=== PATIENT | male | born 1965 | race Caucasian/White ===

== ENCOUNTER 2024-08-18 12:24 | Emergency (ER) | payer BC, SELFPAY ==
[2024-08-18 12:37] VITALS: BP 138/74; PULSE 81; RESP 18; TEMP 36.6; O2SAT 98; BMI 29.5
--- NOTE | 2024-08-18 12:47 | ED.ABDPAIN ---
HPI - Abdominal Pain General Time Seen by Provider: 12:47 Date Seen: 08/18/24 Chief Complaint: Abdominal Pain Stated Complaint: Abdominal pain Time Seen by Provider: 08/18/24 12:46 Source: patient and RN notes reviewed Mode of arrival: ambulatory Limitations: no limitations History of Present Illness HPI narrative: This 59yo male is coming into the ED with onset of LLQ abdominal pain starting this am. 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 Started to feel more sharp in character, pain was enough that he cancelled his next appointment and proceeded to come here. No fevers, is feeling some chills now. No nausea or vomiting. Has had prior colonoscopy. Has normal bowels without change including this am. No urinary changes. He does lift weights, has been doing a lot of lifting as he recently moved his son, this includes lifting a heavy T.V. stand last night. Noted no pain with lifting at the time. Has not felt any abdominal buldging. Related Data Previous Rx's ?Medication ?Instructions ?Recorded amoxicillin 875 mg-potassium 1 tab PO BID #20 tabs 08/18/24 clavulanate 125 mg tablet ketorolac 10 mg tablet 10 mg PO Q6H PRN pain #20 tabs 08/18/24 Allergies Allergy/AdvReac Type Severity Reaction Status Date / Time No Known Drug Allergies Allergy Verified 08/18/24 14:17 Review of Systems Status of ROS Reports: 6 or more systems reviewed and unremarkable except as noted in History and below Exam Const: Vital Signs, click to edit/add: Vital Signs - 24 hr 08/18/24 12:37 08/18/24 14:43 Temperature 98 F 97.2 F L Pulse Rate [Pulse Oximeter] 81 78 Respiratory Rate 18 16 Blood Pressure [Ri ght Upper Arm] 138/74 120/91 H Pulse Oximetry 98 98 Oxygen Delivery Me thod Room Air Room Air This 59-year-old male is alert, interactive, no apparent distress. No scleral icterus, symmetrical facial function, speaking easily in complete sentences. Lungs are clear, good air entry, no wheezing crackles. CV regular rate and rhythm, no murmur, normal S1-S2. Abdomen is soft, nondistended, has normal bowel sounds. He has definite left lower quadrant tenderness with some mild guarding, no true rebound. He is not tender elsewhere in abdomen, it is isolated to the left lower quadrant. Note no inguinal mass. Documenting provider has reviewed patient's vital signs: yes Course Course ED Course: Patient and I discussed that I suspect bowel pathology such as diverticulitis, less likely colitis given normal bowel habits. There is possibility that it could be urinary structure issue such as a kidney stone but feel this is less likely given his presentation. We will do CT imaging with IV contrast which will elucidate the intra-abdominal pathology. Will place an IV, get appropriate labs. Will start with Toradol for pain management, he states he is really not feeling nauseated. If Toradol isn't sufficient, we can consider other pain options. Reevaluation(s) Time of Reevaluation #1: 13:58 Reevaluation #1: Patient is resting, we are awaiting his CT scan to be taken. The Toradol has taken the edge off, does not feel he needs anything further for pain at this time. Reviewed that his white blood count is mildly elevated that certainly would go with something like diverticulitis. His C-reactive protein and on basic metabolic panel are normal. Lactate was normal. Time of Reevaluation #2: 14:50 Reevaluation #2: Have reviewed with patient his CT report. He has acute uncomplicated diverticulitis. Will give him a dose of IV antibiotics before discharge. He has no concerning changes that would warrant hospitalization at this time, do feel that he is stable to proceed with trial of outpatient management with oral antibiotics. Did discuss pain management with patient, he declines any narcotics. We will trial him on Tylenol and Toradol. Vital Signs Vital signs: Initial Vital Signs Temperature 98 F 08/18/24 12:37 Temperature Source Temporal Artery Scan 08/18/24 12:37 Pulse Rate 81 08/18/24 12:37 Respiratory Rate 18 08/18/24 12:37 Blood Pressure 138/74 08/18/24 12:37 Blood Pressure Mean 95 08/18/24 12:37 Pulse Oximetry 98 08/18/24 12:37 Oxygen Delivery Method Room Air 08/18/24 12:37 Vital Signs Temperature 98 F 08/18/24 12:37 Pulse Rate 81 08/18/24 12:37 Respiratory Rate 18 08/18/24 12:37 Blood Pressure 138/74 08/18/24 12:37 Pulse Oximetry 98 12/05/24 12:37 Oxygen Delivery Method Room Air 08/18/24 12:37 Temperature 97.2 F L 08/18/24 14:43 Pulse Rate 78 08/18/24 14:43 Respiratory Rate 16 08/18/24 14:43 Blood Pressure 120/91 H 08/18/24 14:43 Pulse Oximetry 98 08/18/24 14:43 Oxygen Delivery Method Room Air 08/18/24 14:43 Medications Administered Medications: Discontinued Medications Generic Name Dose Route Start Last Admin Trade Name Freq PRN Reason Stop Dose Admin Ketorolac Tromethamine 15 mg 08/18/24 12:53 08/18/24 13:08 Ketorolac 15 Mg/Ml Inj IVP 08/18/24 12:54 15 mg ONCE ONE Administration MDM - Abdominal Pain Lab Data Attestation: I reviewed the patient's lab results. Labs: Lab Results 08/18/24 Range/Units 13:05 WBC 11.58 H (4.50-11.00) K/uL RBC 5.54 (4.30-5.90) m/uL Hgb 16.4 (13.5-17.5) gm/dL Hct 48.0 (37.0-53.0) % MCV 87 (80-100) fL MCH 30 (26-34) pg MCHC 34 (32-36) gm/dL RDW Coeff of Jessika 12.8 (11.5-15.5) % Plt Count 217 (140-440) K/uL Neut % (Auto) 75.4 H (42.0-72.0) % Lymph % (Auto) 15.7 L (20-44) % [place] % (Auto) 7.1 (0.0-11.0) % Eos % (Auto) 1.2 (0.0-7.0) % Baso % (Auto) 0.4 (0.0-3.0) % Neut # (Auto) 8.70 H (1.7-7.0) K/uL Lymph # (Auto) 1.80 (0.90-2.90) K/uL [place] # (Auto) 0.80 (0.00-0.90) K/UL Eos # (Auto) 0.10 (0.00-0.50) K/uL Baso # (Auto) 0.00 (0.00-0.30) K/uL Abs Immat Gran (auto) 0.00 (0.00-0.30) K/uL Imm/Tot Granulo (auto) 0.2 % Sodium 135 (135-149) mmol/L Potassium 4.0 (3.6-5.1) mmol/L Chloride 104 (96-114) mmol/L Carbon Dioxide 21 (20-32) mmol/L Anion Gap 10 (7-15) mEq/L BUN 17 (7-30) mg/dL Creatinine 0.9 (0.5-1.5) mg/dL Estimated Creat Clear 90.56 Estimated GFR 100 ml/min Glucose 106 (60-115) mg/dL Lactate 1.2 (0.5-1.9) mmol/L Calcium 9.3 (8.4-10.6) mg/dL C-Reactive Protein 0.7 (0.5-1.0) mg/dL Imaging Data CT scan - abdomen: Attestation: I have reviewed the pertinent imaging results. Radiologist's impression: Patient: MARC BLACKMAN Facility:?[facility] Patient ID:?[id number] Site Patient ID:?[id number]. Site :?[id number] Study:?CT-Abdomen/Pelvis 108CC ISOVUE 370-08/18/2024 2:17:30 PM Ordering Physician:Linette Chambers Final Report: INDICATION: Abdominal pain. TECHNIQUE: Multiplanar CT examination of the abdomen and pelvis was performed after the administration of 100 mL Isovue 370 intravenous contrast. COMPARISON: None. FINDINGS: Lower chest: No focal consolidation. Normal heart size. No pleural effusions or pneumothorax. Subsegmental dependent atelectasis. Small hiatal hernia. Liver: Diffuse hepatic steatosis. Gallbladder: Unremarkable. Biliary: Unremarkable. Pancreas: Within normal limits. Spleen: Unremarkable. Adrenal glands: Unremarkable. Renal/ureters/bladder: Normal in size and symmetrically enhancing. No obstructive uropathy. No hydronephrosis or obstructive urinary calculi. No suspicious renal masses. The ureters appear unremarkable. The bladder is within normal limits. Pelvis: Unremarkable. Gastrointestinal: Moderate colonic wall thickening involving a short segment of the sigmoid colon with associated sigmoid colonic diverticulosis and pericolonic fat stranding. No extraluminal air. No bowel obstruction. Normal appendix. Mild colonic stool burden. Vasculature: No aortic aneurysm. The portal vein remains patent. No significant atherosclerotic calcifications. Lymph nodes: No pathologic lymphadenopathy by size criteria. Peritoneum: No free fluid or pneumoperitoneum. No drainable fluid collections. Abdominal wall/soft tissues: Unremarkable. Bones: No acute osseous abnormalities. Chronic bilateral L5 pars defects with grade 1 anterolisthesis of L5 on S1. IMPRESSION: Findings compatible with acute uncomplicated sigmoid diverticulitis. No drainable abscess identified. Please note that all CT scans at this facility use dose modulation, iterative reconstruction, and/or weight-based dosing when appropriate to reduce radiation dose to as low as reasonably achievable. Dictated by Tomer Andrews MD @ 08/18/2024 2:31:22 PM (Electronic Signature) Discharge Plan Discharge Clinical Impression: Diverticulitis Patient Disposition: Home, Self-Care Condition: Stable Instructions: Diverticulitis (ED), Diverticulitis Diet (ED) Additional Instructions: Start oral antibiotics tonight, complete and take as prescribed. Can use Toradol as prescribed if needed for pain. Do not use ibuprofen with the Toradol as they are both NSAID class. Can use Tylenol 1000 mg 3 times a day baseline for pain. Consider just staying on clear liquids overnight possibly into tomorrow. If feeling better later tomorrow, can follow the dietary handout provided. Once her diverticulitis has resolved and her back to baseline, can resume a high-fiber diet. Do recommend following up with your primary care provider and making sure that your colonoscopy is up-to-date. If it has not been done in the recent time frame, may need to consider repeating colonoscopy in 6-8 weeks after resolution of this episode of diverticulitis. If you are not improving over the next few days, if there is further concerns or you are worsening at any point, need to seek re-evaluation. Activity Level: Activity as Tolerated Prescriptions: New amoxicillin-pot clavulanate 875-125 mg tablet 1 tab PO BID Qty: 20 0RF ketorolac 10 mg tablet 10 mg PO Q6H PRN (Reason: pain) Qty: 20 0RF Rx Instructions: maximum total duration of 5 days from all oral, intranasal, or parenteral formulations Follow Up/Referrals: Jerzy Arias MD [Staff Physician] - Stand Alone Forms: [employer] Info Instructions
--- NOTE | 2024-08-18 12:53 | CRLHL7_ITS ---
For Patients: As a result of the Century Cures Act, medical imaging exams and procedure reports are released immediately into your electronic medical record. You may view this report before your referring provider. If you have questions, please contact your health care provider. INDICATION: Abdominal pain. TECHNIQUE: Multiplanar CT examination of the abdomen and pelvis was performed after the administration of 100 mL Isovue 370 intravenous contrast. COMPARISON: None. FINDINGS: Lower chest: No focal consolidation. Normal heart size. No pleural effusions or pneumothorax. Subsegmental dependent atelectasis. Small hiatal hernia. Liver: Diffuse hepatic steatosis. Gallbladder: Unremarkable. Biliary: Unremarkable. Pancreas: Within normal limits. Spleen: Unremarkable. Adrenal glands: Unremarkable. Renal/ureters/bladder: Normal in size and symmetrically enhancing. No obstructive uropathy. No hydronephrosis or obstructive urinary calculi. No suspicious renal masses. The ureters appear unremarkable. The bladder is within normal limits. Pelvis: Unremarkable. Gastrointestinal: Moderate colonic wall thickening involving a short segment of the sigmoid colon with associated sigmoid colonic diverticulosis and pericolonic fat stranding. No extraluminal air. No bowel obstruction. Normal appendix. Mild colonic stool burden. Vasculature: No aortic aneurysm. The portal vein remains patent. No significant atherosclerotic calcifications. Lymph nodes: No pathologic lymphadenopathy by size criteria. Peritoneum: No free fluid or pneumoperitoneum. No drainable fluid collections. Abdominal wall/soft tissues: Unremarkable. Bones: No acute osseous abnormalities. Chronic bilateral L5 pars defects with grade 1 anterolisthesis of L5 on S1. IMPRESSION: Findings compatible with acute uncomplicated sigmoid diverticulitis. No drainable abscess identified. Please note that all CT scans at this facility use dose modulation, iterative reconstruction, and/or weight-based dosing when appropriate to reduce radiation dose to as low as reasonably achievable. Dictated by Tomer Andrews MD @ 08/18/2024 2:31:22 PM (Electronically Signed)
--- OUTSIDE RECORDS SUMMARY | 2024-08-18 13:07 | XMS_ITS | Clinical Summary ---
Author Organization [facility] Address [place], [place] [address] Care Team Providers Care Sharepoint Consultant Name Role Phone Arianna Bain DO Primary Care Provider [phone] Allergies No known active allergies Medications Medication Sig Dispensed Refills Start Date End Date Status cholecalciferol (VITAMIN D) 1,000 unit tablet Take 1 tablet by mouth once daily. 0 06/23/2014 Active clobetasol 0.05% TOPICAL (TEMOVATE) 0.05 % external solutionIndicatio ns:Eczema, unspecified type apply a thin layer to the affected area on the scalp, twice a day for 10 days, once a day for 10 days, every other day for 10 days. 50 mL 1 10/02/2022 Active clobetasol (TEMOVATE) 0.05 % ointmentIndicatio ns:Nummular dermatitis apply a thin layer, precise application to the affected area(s) twice a day for 10 days, once a day for 10 days, every other day for 10 days. 60 g 07/29/2024 Active triamcinolone (ARISTOCORT) 0.1 % ointmentIndicatio ns:Dermatitis Apply to the affected areas twice daily for 10-14 days then once daily x 10-14 days and every other day x 10-14 days. Use sparingly. Do not use on face, axilla and groin. 30 g 08/13/2022 Discontinue d(*Patient states no longer taking) fluocinonide 0.05 TOPICAL (LIDEX) 0.05 % external solutionIndicatio ns:Dermatitis Apply to the affected areas on the scalp 2 times daily x 10-14 days then once daily x 10-14 days and every other day x 10-14 days. Use sparingly. Do not use on face, axilla and groin. 60 mL 08/13/2022 4 Discontinue d(*Patient states no longer taking) clobetasol 0.05% (TEMOVATE 0.05% OINTMENT) 0.05 % ointmentIndicatio ns:Nummular dermatitis apply a thin layer, precise application to the affected area(s) twice a day for 10 days, once a day for 10 days, every other day for 10 days. 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 Excision done by Dr. Bryant on 09/17/20. Umbilical hernia without obstruction and without gangrene 03/11/2017 Impaired fasting glucose 01/06/2012 Mixed hyperlipidemia 01/06/2012 Encounters Date Type Department Care Team Description 08/01/2024 Orders Only [facility] [address] [place] [address] Arianna Bain DO Referral 07/29/2024 3:20 PM MOBILE MARKETING MANAGER Office Visit [facility] [address] [place] [address] Arianna Bain DO Physical (59 year old ) 07/29/2024 Travel from Last 3 Months Immunizations Name Administration Dates Next Due COVID-19 VACCINE SPIKEVAX (M ODERNA 50MCG/0.5ML) 12YO+ PFS 07/29/2024 COVID-19 vaccine (F[employer]ia.[employer] NTech 30mcg/0.3mL) PF, MDV 01/10/2022,10/18/2020,09/27/2020 INFLUENZA, IIV3 PF (AGE >= 6 MO) 07/29/2024 Influenza A (H1N1), Inactiva andrew (Age >=3 Years) 11/13/2009 Influenza Virus, Unspecified 06/15/2015 Influenza, IIV3 (Age >=3 years) 07/26/20 13,07/27/2012,07/25/2010,2009 Influenza, IIV4 08/05/2022,,06/18/2020,2018,07/19/2018,07/06/2017,07/21/2016,1 09/14/2013 Influenza,CCIIV4 PRESERV FREE 08/09/2023 Tdap 06/18/2020,11/13/2009 Zoster (Shingrix-RZV, recombinant) 06/18/2020, Family History Medical History Relation Name Comments Diabetes Father Stu Heart Disease Father Stu with sents x4 after age 55 Hyperlipidemia Father Bill Hypertension Father Stu Arthritis Mother Tracey knee/hip replac ements Cancer-breast Mother Tracey Diabetes Mother Tracey Cancer-colon Neg. 1 Cancer-prostate Neg. 2 Stroke Neg. 3 Anesthesia Problem No Family History Relation Name Status Comments Father Stu Alive Mother Tracey Alive Neg. 1 Neg. 2 Neg. 3 Social History Tobacco Use Types Packs/Day Years Used Date Smoking Tobacco: Never Smokeless Tobacco: Never Tobacco Cessation:Counseling Given: Yes Alcohol Use Standard Drinks/Week Comments Yes 2 (1 standard drink = 0.6 oz pur e alcohol) rare PHQ-2 Answer Date Recorded PHQ-2 TOTAL SCORE 0 07/29/2024 Social Connections Answer Date Recorded Do you often feel lonely or isolated from those around you? 0 07/29/2024 Financial Resource Strain Answer Date R ecorded Difficulty of Paying Living Expenses 3 07/29/2024 Difficulty of Paying Living Expenses Not on file 07/29/2024 Food Insecurity Answer Date Recorded Do you worry your food will run out before you are able to buy more? 1 07/29/2024 Transportation Needs Answer Date Record ed Does lack of transportation keep you from medica l appointments? 1 07/29/2024 Does lack of transportation keep you from work, meetings or getting things that you need? 1 07/29/2024 Housing Stability Answer Date Recorded What is your housing situation today? 1 07/29/2024 Sex and Gender Information Value Date Recorded Sex Assigned at Not on file Gender Identity Not on file Sexual Orientation Not on file Obstetrics History Last Filed Vital Signs Vital Sign Reading Time Taken Comments Blood Pressure 129/88 07/29/2024 4:35 PM MOBILE MARKETING MANAGER Pulse 83 07/29/2024 4:35 PM MOBILE MARKETING MANAGER Temperature 36.8 C (98.3 F) 01/16/2023 3:24 PM CDT Respiratory Rate 16 01/23/2020 12:5 6 PM CDT Oxygen Saturation 98% 07/29/2024 3:32 PM MOBILE MARKETING MANAGER Inhaled Oxygen Concentration - - Weight 91.6 kg (201 lb 14.4 oz) 07/29/2024 3:32 PM MOBILE MARKETING MANAGER Height 174.8 cm (5' 8.82) 07/29/2024 3:32 PM CS T Body Mass Index 29.97 07/29/2024 3:32 PM MOBILE MARKETING MANAGER Plan of Treatment Upcoming Encounters Date Type Department Care Team (Late st Contact Info) Description 01/27/2025 2:15 PM CDT Orders Only [facility] [address] [place] [address] Lab, [facility] Maintenance Due Date Last Done Comments BMI (ht and wt on same day) for age 18+ 07/29/2025 07/29/2024, 08/15/2022, 05/08/2022, Additional history exists Depression screening for age 12+ 08/01/2025 08/01/2024, 07/29/2024, 08/15/2022, Additional history exists Colonoscopy through age 75 07/05/202607/05, 07/05/2021, 07/05/2021 Lipids for age 45-75 07/29/2029 07/29/2024, 08/15/2022, 06/18/2020, Additional history exists Tetanus booster 06/18/2030 06/18/2020, 11/13/2009 Tdap Completed 06/18/2020, 11/13/2009 Zoster (shingles) series for age 50+ Completed 06/18/2020, 06/16/2018 HIV for age 15-65 Completed 08/15/2022 Hepatitis C screening for age 18-79 Completed 08/15/2022 COVID-19 vaccine series Completed 07/29/20, 07/01/2023, 07/11/2022, Additional history exists Influenza for age 50-64 Completed 07/29/20, 08/09/2023, 08/05/2022, Additional history exists Pneumococcal series for age 6-64 Aged Out No longer eligible based on patient's age to complete this topic Procedures Procedure Name Priority Date/Time Associated Diagnosis Comments LIPID PANEL Routine 07/29/2024 4:36 PM MOBILE MARKETING MANAGER Annual physical exam PSA (TOTAL) ([facility]) Routine 07/29/2024 4 :36 PM MOBILE MARKETING MANAGER Prostate cancer screening HEMOGLOBIN A1C Routine 07/29/2024 4:36 PM MOBILE MARKETING MANAGER Prediabetes BASIC METABOLIC PANEL Routine 07/29/2024 4:36 PM MOBILE MARKETING MANAGER Annual physical exam ANTI HIV 1/2 Routine 08/15/2022 8:35 AM MOBILE MARKETING MANAGER Encounter for screening for human immunodeficiency virus (HIV) ANTI HCV Routine 08/15/2022 8:35 AM MOBILE MARKETING MANAGER Need for hepatitis C screening test COLONOSCOPY SCREENING Routine 07/05/2021 8:41 AM CDT Screening for colon cancer from Last 3 Months or Most Recently Relevant to Health Maintenance Results * PSA (TOTAL) ([facility]) (07/29/2024 4:36 PM MOBILE MARKETING MANAGER) PSA, TOTAL 0.56 < OR = 4.00 ng/mL [facility] Comment: The total PSA value from this assay system is standardized against the WHO standard. The test result will be approximately 20% lower when compared to the equimolar-standardized total PSA (Pancho Naila). Comparison of serial PSA results should be interpreted with this fact in mind. This test was performed using the Siemens chemiluminescent method. Values obtained from different assay methods cannot be used interchangeably. PSA levels, regardless of value, should not be interpreted as absolute evidence of the presence or absence of disease. Blood BLOOD SPECIMEN / Unknown 07/29/2024 4:36 PM MOBILE MARKETING MANAGER 07/29/2024 4:37 PM MOBILE MARKETING MANAGER Arianna Bain DO SEND OUTS Performing Organization Address [facility] Co de Phone Number [facility] [employer] [facility] [address] [place] [address], [facility] [address] [place] [address] * (ABNORMAL) HEMOGLOBIN A1C (07/29/2024 4:36 PM MOBILE MARKETING MANAGER) HEMOGLOBIN A1C 6.0(H) <5.7 % of total Hgb [facility] Comment: For someone without known diabetes, a hemoglobin A1c value between 5.7% and 6.4% is consistent with prediabetes and should be confirmed with a follow-up test. For someone with known diabetes, a value <7% indicates that their diabetes is well controlled. A1c targets should be individualized based on duration of diabetes, age, comorbid conditions, and other considerations. This assay result is consistent with an increased risk of diabetes. Currently, no consensus exists regarding use of hemoglobin A1c for diagnosis of diabetes for children. Blood BLOOD SPECIMEN / Unknown 07/29/2024 4:36 PM MOBILE MARKETING MANAGER 07/29/2024 4:37 PM MOBILE MARKETING MANAGER Arianna Bain DO CHEMISTRY Performing Organization Address [facility]/ZIP Co de Phone Number [facility] [address] [place] [address], [place] [phone] [facility] [address] [place] [address] * (ABNORMAL) LIPID PANEL (07/29/2024 4:36 PM MOBILE MARKETING MANAGER) CHOLESTEROL, TOTAL 197 <200 mg/dL [facility] HDL CHOLESTEROL 37(L) > OR = 40 mg/dL [facility] TRIGLYCERIDES 334(H) <150 mg/dL [facility] Comment: If a non-fasting specimen was collected, consider repeat triglyceride testing on a fasting specimen if clinically indicated. Valentina et al. J. of Clin. Lipidol. 2015;9:129-169. LDL-CHOLESTEROL 112(H) mg/dL (calc) [facility] Comment: Reference range: <100 Desirable range <100 mg/dL for primary prevention; <70 mg/dL for patients with CHD or diabetic patients with > or = 2 CHD risk factors. LDL-C is now calculated using the Richard-Conrad calculation, which is a validated novel method providing better accuracy than the Friedewald equation in the estimation of LDL-C. Richard SS et al. AIMEE. 2013;310(19): 7328-6545 (http://education.expresscoin/faq/QEE157) CHOL/HDLC RATIO 5.3(H) <5.0 (calc) [facility] NON HDL CHOLESTEROL 160(H) <130 mg/dL (calc) [facility] Comment: For patients with diabetes plus 1 major ASCVD risk factor, treating to a non-HDL-C goal of <100 mg/dL (LDL-C of <70 mg/dL) is considered a therapeutic option. Blood BLOOD SPECIMEN / Unknown 07/29/2024 4:36 PM MOBILE MARKETING MANAGER 07/29/2024 4:37 PM MOBILE MARKETING MANAGER Arianna Bain DO CHEMISTRY [employer] [facility] [address] [place] [address], [facility] [address] [place] [address] * BASIC METABOLIC PANEL (07/29/2024 4:36 PM MOBILE MARKETING MANAGER) [facility] GLUCOSE 87 65 - 99 mg/dL [facility] Comment: Fasting reference interval UREA NITROGEN (BUN) 18 7 - 25 mg/dL [facility] CREATININE 1.21 0.70 - 1.30 mg/dL [facility] EGFR 70 > OR = 60 mL/min/1. 73m2 [facility] BUN/CREATININE RATIO SEE NOTE: 6 - 22 (calc) [facility] Comment: Not Reported: BUN and Creatinine are within reference range. SODIUM 139 135 - 146 mmol/L [facility] POTASSIUM 4.2 3.5 - 5.3 mmol/L [facility] CHLORIDE 104 98 - 110 mmol/L [facility] CARBON DIOXIDE 24 20 - 32 mmol/L [facility] ELECTROLYTE BALANCE 11 7 - 17 mmol/L (calc) [facility] CALCIUM 9.4 8.6 - 10.3 mg/dL [facility] Blood BLOOD SPECIMEN / Unknown 07/29/2024 4:36 PM MOBILE MARKETING MANAGER 07/29/2024 4:37 PM MOBILE MARKETING MANAGER Arianna Bain DO CHEMISTRY [employer] [facility] [address] [place] [address], [place] [phone] [facility] [address] [place] [address] * ANTI HCV (08/15/2022 8:35 AM MOBILE MARKETING MANAGER) HEPATITIS C ANTIBODY Non-React yasmani Non-React yasmani 08/17/2022 3:23 AM MOBILE MARKETING MANAGER [facility] [employer] [facility] Comment:Antibodies to HCV no t detected; does not exclude the possibility of exposure to HCV. Blood BLOOD SPECIMEN / Unknown Venipuncture / Unknown 08/15/2022 8:35 AM MOBILE MARKETING MANAGER 08/15/2022 8:42 AM MOBILE MARKETING MANAGER Jerzy Arias MD SEND OUTS [facility] [address] [place] [address], [place] * ANTI HIV 1/2 (08/15/2022 8:35 AM MOBILE MARKETING MANAGER) HIV-1/HIV-2 ANTIBODY Non-Reacti ve Non-Reacti ve 08/17/2022 8:50 AM MOBILE MARKETING MANAGER [facility] Comment:HIV-1 p24 and HIV-1/ HIV-2 Ab not detected. Blood BLOOD SPECIMEN / Unknown Venipuncture / Unknown 08/15/2022 8:35 AM MOBILE MARKETING MANAGER 08/15/2022 8:42 AM MOBILE MARKETING MANAGER Jerzy Arias MD SEND OUTS [facility] [address] [place] [address], [place] * COLONOSCOPY (07/05/2021 8:53 AM CDT) 07/05/2021 8:53 AM CDT Narrative Transcriptions Richard Washington MD - 07/05/2021 9:55 AM CDT Patient Name: Faraz Blackman Procedure Date: 07/05/2021 Gender: Male Date of : 1965 Admit Type: Outpatient Procedure: Colonoscopy Proceduralist: Richard Washington MD , Stephania Skinner RN(Nurse) Referring MD: Jerzy Arias Indications/Pre-Op Diagnosis: Screening for colorectal malignant neoplasm, This is the patient's first colonoscopy Medications: Fentanyl 100 micrograms IV, Midazolam 4 mgIV, The level of sedation administered wasmoderate Procedure Description: The patient had risks, benefits and alternatives explained to andgave informed consent. The patient had a stable cardiopulmonary status and judged an adequate candidate for conscious sedation. The colonoscope was passed through the anus and advanced to thececum, identified by appendiceal orifice and ileocecal valve. Thecolonoscopy was performed without difficulty. The patient tolerated the procedure well. The quality of the bowel preparation was good. The ileocecal valve, appendiceal orifice, and rectum were photographed. Complications: No immediate complications. Estimated Blood Loss & Specimen: Estimated blood loss: none. Specimen collected - Yes and sent to Laboratory Findings: The perianal and digital rectal examinations were normal. A 5 mm polyp was found in the appendiceal orifice. The polyp was sessile. The polyp was removed with a hot snare. Resection andretrieval were complete. To prevent bleeding after the polypectomy, onehemostatic clip was successfully placed (MR conditional). There was no bleeding during, or at the end, of the procedure. A 4 mm polyp was found in the descending colon. The polyp wassessile. The polyp was removed with a hot snare. Resection and retrieval were complete. The exam was otherwise without abnormality on direct and retroflexion views. Impressions/Post-Op Diagnosis: - One 5 mm polyp at the appendiceal orifice, removed with a hotsnare. Resected and retrieved. Clip (MR conditional) was placed. - One 4 mm polyp in the descending colon, removed with a hot snare. Resected and retrieved. - The examination was otherwise normal on direct and retroflexionviews. Recommendation: - Patient has a contact number available for emergencies. The signsand symptoms of potential delayed complications were discussed with the patient. Return to normal activities tomorrow. Written discharge instructions were provided to the patient. - Resume previous diet. - Continue present medications. - Await pathology results. - Repeat colonoscopy is recommended. The colonoscopy date will be determined after pathology results from today's exam become available for review. - Avoid heavy lifting greater than 30 lbs., asprin/ nonsteroidal medicines, exercise and strenuous activity for 2 weeks. Moderate Sedation: Moderate (conscious) sedation was administered by the endoscopy nurse and supervised by the endoscopist. The following parameters were monitored: oxygen saturation, heart rate, respiratory rate, blood pressure, adequacy of pulmonary ventilation and reponse to care. Please refer to the patient's medical record flowsheets and nursing notes for moderate sedation details. Total physician intraservice time was 23 minutes. Richard Washington MD 07/05/2021 9:51:11 AM This report has been signed electronically. Note Initiated On: 07/05/2021 8:53 AM Procedure Code(s): --- Professional --- 51561, Colonoscopy, flexible; with removalof tumor(s), polyp(s), or other lesion(s) bysnare technique Diagnosis Code(s): --- Professional --- Z12.11, Encounter for screening formalignant neoplasm of colon K63.5, Polyp of colon CPT copyright 2020 [employer]. All rights reserved. The codes documented in this report are preliminary and upon brand marketing manager reviewmay be revised to meet current compliance requirements. Scope In: 9:23:29 AM Scope Withdrawal Time 0 hours 17 minutes 51 seconds Scope Out: 9:45:01 AM Richard Washington MD PROCEDURE ORD from Last 3 Months or Most Recently Relevant to Health Maintenance Advance Directives * Full Code (Latest Code Status on File) Date Activated Date Inactivated Comments 03/24/2017 10:44 AM 03/24/2017 2:19 PM * Full Code Date Activated Date Inactivated Comments 03/24/2017 8:10 AM 03/24/2017 10:44 AM Care Teams Sharepoint Consultant Relationship Specialty Start Date End Date [place] [address] PCP - General Family Practice 07/29/24
[2024-08-18] MEDS: KETOROLAC 15 MG/ML inj IVP (13:08)
[2024-08-18 13:15] LABS: Lactate* 1.2 mmol/L (0.5-1.9)
[2024-08-18 13:19] LABS: Basophils Percent Auto 0.4 % (0.0-3.0); Eosinophils Percent Auto 1.2 % (0.0-7.0); Hemoglobin* 16.4 gm/dL (13.5-17.5); Immature Granulocytes Pct Auto 0.2 %; Lymphocytes Percent Auto 15.7 % (20-44); Mean Corpuscular HGB Conc 34 gm/dL (32-36); Mean Corpuscular Hemoglobin 30 pg (26-34); Mean Corpuscular Volume 87 fL (80-100); Monocytes Percent Auto 7.1 % (0.0-11.0); Neutrophils Percent Auto 75.4 % (42.0-72.0); Platelet Count* 217 K/uL (140-440); RDW Coefficient of Variation % 12.8 % (11.5-15.5); Red Blood Count 5.54 m/uL (4.30-5.90); White Blood Count* 11.58 K/uL (4.50-11.00)
[2024-08-18 13:35] LABS: Chloride* 104 mmol/L (96-114); Sodium* 135 mmol/L (135-149)
[2024-08-18 13:38] LABS: Anion Gap 10 mEq/L (7-15); Carbon Dioxide* 21 mmol/L (20-32); Creatinine* 0.9 mg/dL (0.5-1.5); Est. Creatinine Clearance* 90.56; Estimated Glomerular Filt Rate 100 ml/min
[2024-08-18 13:39] LABS: Blood Urea Nitrogen* 17 mg/dL (7-30); Calcium* 9.3 mg/dL (8.4-10.6); Glucose* 106 mg/dL (60-115)
[2024-08-18 13:42] LABS: C Reactive Protein* 0.7 mg/dL (0.5-1.0)
[2024-08-18 13:48] LABS: Slide Review Reflex No
[2024-08-18 14:43] VITALS: BP 120/91; PULSE 78; RESP 16; TEMP 36.2; O2SAT 98
[2024-08-18] MEDS: AMPICILLIN/SULBACTAM 3 GM in 0.9 % SODIUM CHLORIDE Mini-bag 100 ML IVPB (15:00)
== END 2024-08-18 15:33 | disposition home or self-care (01) ==
PROVIDERS: Emergency Provider Family Medicine; PCP Student in an Organized Health Care Education/Training Program
DX: K57.32 Diverticulitis of large intestine without perforation or abscess without bleeding (principal)
CPT/HCPCS: 36415; 74177; 80048; 83605; 85025; 86140; 96365; 96375; 99284; J0295; J1885; Q9967

== ENCOUNTER 2024-08-23 11:52 | Emergency (ER) | payer BC, SELFPAY ==
[2024-08-23 11:55] VITALS: BP 143/95; PULSE 83; RESP 18; TEMP 35.9; O2SAT 98; BMI 29.5
--- NOTE | 2024-08-23 12:13 | ED.GENADULT ---
HPI - General Adult General Date Seen: 08/23/24 Chief complaint: Abdominal Pain Stated complaint: diverticulitus Time Seen by Provider: 08/23/24 11:54 Source: patient Mode of arrival: ambulatory Limitations: no limitations History of Present Illness HPI narrative: Patient is a 59-year-old male, generally healthy, who was seen here last week and diagnosed with uncomplicated sigmoid diverticulitis. He was started on Augmentin. He says that his pain is significantly better, he says it was severe last week and it is mild now. However, he says he just has not been able to rebound in terms of his appetite. He says he feels like he has ?gut rot, has had nausea and difficulty whenever he eats anything. He has been able to drink liquids. He has not had fever, denies vomiting, diarrhea, black or bloody stools. He says he has not really had a formed bowel movement yet which she is not terribly surprised by as he has not been eating. He has been taking Toradol kind of around the clock, but says that he tries to stay way from omeprazole due to long-term affects and would like to avoid taking a PPI. He does not feel like he is having significant heartburn or acid reflux. Prior abdominal surgeries include hernia surgery, he has not had any GI surgeries. He does not smoke, drinks rarely. Related Data Previous Rx's ?Medication ?Instructions ?Recorded amoxicillin 875 mg-potassium 1 tab PO BID #20 tabs 08/18/24 clavulanate 125 mg tablet ketorolac 10 mg tablet 10 mg PO Q6H PRN pain #20 tabs 08/18/24 Allergies Allergy/AdvReac Type Severity Reaction Status Date / Time No Known Drug Allergies Allergy Verified 08/23/24 12:00 Review of Systems Status of ROS: Reports: 10 or more systems reviewed and unremarkable except as noted in History and below [facility] Social History Smoking Status: Never smoker Do you use any of these nicotine containing products: None How often do you have a drink containing alcohol: 2-4 times a month AUDIT-C Alcohol total score: 2 Non-prescribed substance use: denies use Exam Narrative: Exam Narrative: Vital signs reviewed In general, alert, nontoxic middle-aged male. Looks comfortable. Head: Normocephalic, atraumatic. Eyes: Sclera clear. Pupils equal and reactive. ENT: Mucous membranes moist. Neck: Supple without adenopathy. Heart: Regular rate and rhythm without murmur. Lungs: Clear. No increased work of breathing, crackles or wheezes. Abdomen: Soft, nontender to palpation. Extremities: Well perfused, pulses intact. No significant edema. Neurologic: Alert, conversant. Speech fluent, face symmetric. Moves all extremities equally. Skin: Warm, dry well perfused. Affect: Normal. Const: Vital Signs, click to edit/add: Vital Signs - 24 hr 08/23/24 11:55 08/23/24 14:52 Temperature 96.7 F L 98.1 F Pulse Rate [Right Pulse Oximeter] 83 73 Respiratory Rate 18 18 Blood Pressure [Ri ght Upper Arm] 143/95 H 145/95 H Pulse Oximetry 98 97 Oxygen Delivery Me thod Room Air Room Air Documenting provider has reviewed patient's vital signs: yes Course Course ED Course: Patient is afebrile, pain is improved and abdominal exam is benign. I think the likelihood of this representing complication from his diverticulitis is relatively low, and I recommended that we start with labs. If these are reasonable, I do not think he needs repeat imaging. He agrees with that. Will treat symptomatically with some Zofran, fluids, further plan to be determined based on labs. It is possible is having some side effects related to the antibiotic, gastritis, mild ileus. Labs are reassuring today. White blood cell count was mildly elevated last week and is normal today at 7 with an unremarkable diff. Hemoglobin is normal. His LFTs are normal, lipase is still pending. Metabolic panel is normal. He is feeling significantly improved after therapy here. Continues to deny pain and abdominal exam remains benign. Will make sure the lipase is normal, complete fluids and then he is comfortable with discharge home. Will prescribe some Zofran, advised that he may want to hold off on the Toradol now given that his pain is improved. Advance diet as able. See primary care if he does not feel like he is returning to normal over the next few days. Return to the ER at any time for worsening or severe pain, fevers, bloody stools or other significant changes. Lipase did not return in a timely manner secondary to the chemistry machine being down. Given that he is feeling better, I think it is reasonable to let him go. I will follow-up on that lab when it is available and call him if needed. Lipase 52. Vital Signs Vital signs: Initial Vital Signs Temperature 96.7 F L 08/23/24 11:55 Temperature Source Temporal Artery Scan 08/23/24 11:55 Pulse Rate 83 08/23/24 11:55 Pulse Rhythm Regular 08/23/24 11:55 Respiratory Rate 18 08/23/24 11:55 Blood Pressure 143/95 H 08/23/24 11:55 Blood Pressure Mean 111 H 08/23/24 11:55 Blood Pressure Position Sitting 08/23/24 11:55 Pulse Oximetry 98 08/23/24 11:55 Oxygen Delivery Method Room Air 08/23/24 11:55 Vital Signs Temperature 96.7 F L 08/23/24 11:55 Pulse Rate 83 08/23/24 11:55 Respiratory Rate 18 08/23/24 11:55 Blood Pressure 143/95 H 08/23/24 11:55 Pulse Oximetry 98 08/23/24 11:55 Oxygen Delivery Method Room Air 08/23/24 11:55 Temperature 98.1 F 08/23/24 14:52 Pulse Rate 73 08/23/24 14:52 Respiratory Rate 18 08/23/24 14:52 Blood Pressure 145/95 H 08/23/24 14:52 Pulse Oximetry 97 08/23/24 14:52 Oxygen Delivery Method Room Air 08/23/24 14:52 Medications Administered Medications: Discontinued Medications Generic Name Dose Route Start Last Admin Trade Name Freq PRN Reason Stop Dose Admin Sodium Chloride 500 mls @ 500 mls/hr 08/23/24 12:12 08/23/24 13:55 0.9 % Sodium Chloride 500 Ml IV 08/23/24 13:11 Infused .Q1H ONE Infusion Ondansetron HCl 4 mg 08/23/24 12:12 08/23/24 12:53 Ondansetron 2 Mg/Ml Inj IVP 08/23/24 12:13 4 mg ONCE ONE Administration Medical Decision Making Lab Data Labs: Lab Results 08/23/24 Range/Units 12:28 WBC 7.17 (4.50-11.00) K/uL RBC 5.24 (4.30-5.90) m/uL Hgb 15.5 (13.5-17.5) gm/dL Hct 45.5 (37.0-53.0) % MCV 87 (80-100) fL MCH 30 (26-34) pg MCHC 34 (32-36) gm/dL RDW Coeff of Jessika 12.5 (11.5-15.5) % Plt Count 227 (140-440) K/uL Neut % (Auto) 68.4 (42.0-72.0) % Lymph % (Auto) 15.9 L (20-44) % Panola % (Auto) 10.2 (0.0-11.0) % Eos % (Auto) 4.9 (0.0-7.0) % Baso % (Auto) 0.3 (0.0-3.0) % Neut # (Auto) 4.91 (1.7-7.0) K/uL Lymph # (Auto) 1.10 (0.90-2.90) K/uL Panola # (Auto) 0.70 (0.00-0.90) K/UL Eos # (Auto) 0.35 (0.00-0.50) K/uL Baso # (Auto) 0.02 (0.00-0.30) K/uL Abs Immat Gran (auto) 0.02 (0.00-0.30) K/uL Imm/Tot Granulo (auto) 0.3 % Sodium 137 (135-149) mmol/L Potassium 4.4 (3.6-5.1) mmol/L Chloride 100 (96-114) mmol/L Carbon Dioxide 26 (20-32) mmol/L Anion Gap 11 (7-15) mEq/L BUN 10 (7-30) mg/dL Creatinine 0.9 (0.5-1.5) mg/dL Estimated Creat Clear 90.56 Estimated GFR 100 ml/min Glucose 103 (60-115) mg/dL Calcium 9.2 (8.4-10.6) mg/dL Total Bilirubin 0.6 (0.1-1.5) mg/dL Direct Bilirubin 0.4 (0.0-0.5) mg/dL AST 32 (12-35) U/L ALT 37 (4-50) U/L Alkaline Phosphatase 57 (40-150) U/L Total Protein 6.7 (6.0-8.3) g/dL Albumin 3.9 (3.3-5.0) g/dL Lipase 52 (23-300) U/L Discharge Plan Discharge Clinical Impression: Diverticulitis Patient Disposition: Home, Self-Care Condition: Improved Instructions: Diverticulitis (ED) Additional Instructions: Your labs today are reassuring. If you have worsening or severe pain, new symptoms such as fever bloody stools, please return to the ER for re-evaluation. Otherwise, I would anticipate you will continue to improve over the next few days. I would hold off on Toradol if possible to give your stomach a break, and use Zofran if needed. Advance your diet as able, starting with bland foods in small amounts. If you do not feel that you are improving, please follow-up with your primary doctor. Prescriptions: No Action amoxicillin-pot clavulanate 875-125 mg tablet 1 tab PO BID Qty: 20 0RF ketorolac 10 mg tablet 10 mg PO Q6H PRN (Reason: pain) Qty: 20 0RF Rx Instructions: maximum total duration of 5 days from all oral, intranasal, or parenteral formulations Follow Up/Referrals: ROCHELLE JIANG DO [Primary Care Provider] - Stand Alone Forms: [employer] Info Instructions
[2024-08-23 12:40] LABS: Basophils Absolute Auto 0.02 K/uL (0.00-0.30); Basophils Percent Auto 0.3 % (0.0-3.0); Eosinophils Absolute Auto 0.35 K/uL (0.00-0.50); Eosinophils Percent Auto 4.9 % (0.0-7.0); Hematocrit 45.5 % (37.0-53.0); Hemoglobin* 15.5 gm/dL (13.5-17.5); Immature Granulocytes Abs Auto 0.02 K/uL (0.00-0.30); Immature Granulocytes Pct Auto 0.3 %; Lymphocytes Percent Auto 15.9 % (20-44); Mean Corpuscular HGB Conc 34 gm/dL (32-36); Mean Corpuscular Hemoglobin 30 pg (26-34); Mean Corpuscular Volume 87 fL (80-100); Monocytes Percent Auto 10.2 % (0.0-11.0); Neutrophils Absolute Auto 4.91 K/uL (1.7-7.0); Neutrophils Percent Auto 68.4 % (42.0-72.0); Platelet Count* 227 K/uL (140-440); RDW Coefficient of Variation % 12.5 % (11.5-15.5); Red Blood Count 5.24 m/uL (4.30-5.90); White Blood Count* 7.17 K/uL (4.50-11.00)
[2024-08-23 12:42] LABS: Slide Review Reflex No
--- OUTSIDE RECORDS SUMMARY | 2024-08-23 12:48 | XMS_ITS | Clinical Summary ---
Author Organization [facility] Address [place], [place] [address] Care Team Providers Care Core Analyst Name Role Phone Arianna Bain DO Primary Care Provider [phone] Allergies No known active allergies Medications cholecalciferol (VITAMIN D) 1,000 unit tablet Take 1 tablet by mouth once daily. 0 4 Active clobetasol 0.05% TOPICAL (TEMOVATE) 0.05 % external solutionIndicat ions:Eczema, unspecified type apply a thin layer to the affected area on the scalp, twice a day for 10 days, once a day for 10 days, every other day for 10 days. 50 mL 1 3 Active clobetasol (TEMOVATE) 0.05 % ointmentIndicat ions:Nummular dermatitis apply a thin layer, precise application to the affected area(s) twice a day for 10 days, once a day for 10 days, every other day for 10 days. 60 g 4 Active triamcinolone (ARISTOCORT) 0.1 % ointmentIndicat ions:Dermatitis Apply to the affected areas twice daily for 10-14 days then once daily x 10-14 days and every other day x 10-14 days. Use sparingly. Do not use on face, axilla and groin. 30 g 2 024 Discontin ued(*Candy ent states no longer taking) fluocinonide 0.05 TOPICAL (LIDEX) 0.05 % external solutionIndicat ions:Dermatitis Apply to the affected areas on the scalp 2 times daily x 10-14 days then once daily x 10-14 days and every other day x 10-14 days. Use sparingly. Do not use on face, axilla and groin. 60 mL 2 024 Discontin ued(*Candy ent states no longer taking) clobetasol 0.05% (TEMOVATE 0.05% OINTMENT) 0.05 % ointmentIndicat ions:Nummular dermatitis apply a thin layer, precise application to the affected area(s) twice a day for 10 days, once a day for 10 days, every other day for 10 days. 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 Excision done by Dr. Bryant on 09/17/20. Umbilical hernia without obstruction and without gangrene 03/11/2017 Impaired fasting glucose 01/06/2012 Mixed hyperlipidemia 01/06/2012 Encounters Date Type Department Care Team Description 08/18/2024 Orders Only [facility] Scanner 1 scan: (1-Ord) PABLO, ABD/PELVIS W, 08/18/2024 08/01/2024 Orders Only [facility] [address] [place] [address] Arianna Bain DO Referral 07/29/2024 3:[address] Office Visit [facility] [address] [place] [address] Shaqra, Adei, DO Physical (59 year old ) 07/29/2024 Travel from Last 3 Months Immunizations Name Administration Dates Next Due COVID-19 VACCINE SPIKEVAX (M ODERNA 50MCG/0.5ML) 12YO+ PFS 07/29/2024 COVID-19 vaccine (Pfizer-Bio NTech 30mcg/0.3mL) PF, MDV 01/10/2022,10/18/2020,09/27/2020 INFLUENZA, IIV3 [...] sents x4 after age 55 Hyperlipidemia Father Stu Hypertension Father Stu Arthritis Mother Tracey knee/hip [...] Recorded Sex Assigned at Not on file Legal Sex Male 5:[address] Gender Identity Not on file Sexual Orientation Not on file Obstetrics History Last Filed Vital Signs Vital Sign Reading Time Taken Comments Blood Pressure 129/88 07/29/2024 4:[address] Pulse 83 07/29/2024 4:[address] [facility] Temperature 36.8 C (98.3 F) 01/16/2023 3:24 PM CDT Respiratory Rate 16 01/23/2020 12:5 6 PM CDT Oxygen Saturation 98% 07/29/2024 3:[address] Inhaled Oxygen Concentration - - Weight 91.6 kg (201 lb 14.4 oz) 07/29/2024 3:[address] Height 174.8 cm (5' 8.82) 07/29/2024 3:32 PM CS T Body Mass Index 29.97 07/29/2024 3:[address] Plan of Treatment Upcoming Encounters Date Type Department Care Team (Late st Contact Info) Description 01/27/2025 2:15 PM CDT Orders Only [facility] [address] [place] [address] Lab, [facility] Maintenance Due Date Last [...] Procedure Name Priority Date/Time Associated Diagnosis Comments SCAN-CT INTERPRETATION 08/18/2024 12:[address] [facility] LIPID PANEL Routine 07/29/2024 4:[address] Annual physical exam PSA (TOTAL) ([facility]) Routine 07/29/2024 4 :[address] Prostate cancer screening HEMOGLOBIN A1C Routine 07/29/2024 4:[address] [facility] Prediabetes BASIC METABOLIC PANEL Routine 07/29/2024 4:[address] [facility] Annual physical exam ANTI HIV 1/2 Routine 08/15/2022 8:[address] Encounter for screening for human immunodeficiency virus (HIV) ANTI HCV Routine 08/15/2022 8:[address] Need for hepatitis C screening test COLONOSCOPY SCREENING Routine 07/05/2021 8:41 AM CDT Screening for colon cancer from Last 3 Months or Most Recently Relevant to Health Maintenance Results * SCAN-CT INTERPRETATION (08/18/2024 12:[address]) Anatomical Region Laterality Modality Other us Scanner OTHER Final Result * PSA (TOTAL) ([facility]) (07/29/2024 4:[address]) PSA, TOTAL 0.56 < OR = 4.00 ng/mL [employer] Comment: The total PSA value from this assay system is standardized against the WHO standard. The test result will be approximately 20% lower when compared to the equimolar-standardized total PSA (Pancho Kittrell). Comparison of serial PSA results should be interpreted with this fact in mind. This test was performed using the Siemens chemiluminescent method. Values obtained from different assay methods cannot be used interchangeably. PSA levels, regardless of value, should not be interpreted as absolute evidence of the presence or absence of disease. Blood BLOOD SPECIMEN / Unknown 07/29/2024 4:[address] 07/29/2024 4:[address] us Adei Shaqra DO SEND OUTS Final Result Performing Organization Address [facility] Co de Phone Number [employer] [facility] [address] [place] [address], [employer] [facility] [address] [place] [address] * (ABNORMAL) HEMOGLOBIN A1C (07/29/2024 4:[address]) Pathologist [facility] HEMOGLOBIN A1C 6.0(H) <5.7 % of total Hgb [facility] [employer] Comment: For someone without known diabetes, a [...] BLOOD SPECIMEN / Unknown 07/29/2024 4:[address] 07/29/2024 4:[address] us Adei Shaqra DO CHEMISTRY Final Result Performing Organization Address [facility]/State/ZIP Co de Phone Number [facility] [address] [place] [address], [employer] [facility] [address] [place] [address] * (ABNORMAL) LIPID PANEL (07/29/2024 4:[address]) [facility] Signature CHOLESTEROL, TOTAL 197 <200 mg/dL [employer] HDL CHOLESTEROL 37(L) > OR = 40 mg/dL [employer] TRIGLYCERIDES 334(H) <150 mg/dL [employer] Comment: If a non-fasting specimen was collected, consider repeat triglyceride testing on a fasting specimen if clinically indicated. Valentina et al. J. of Clin. Lipidol. 2015;9:129-169. LDL-CHOLESTEROL 112(H) mg/dL (calc) [employer] Comment: Reference range: <100 Desirable range <100 mg/dL for primary prevention; <70 mg/dL for patients with CHD or diabetic patients with > or = 2 CHD risk factors. LDL-C is now calculated using the Richard-Martines calculation, which is a validated novel method providing better accuracy than the Friedewald equation in the estimation of LDL-C. Richard SS et al. AIMEE. 2013;310(19): 9602-4319 (http://education.[employer]/faq/COJ152) CHOL/HDLC RATIO 5.3(H) <5.0 (calc) [facility] [facility] NON HDL CHOLESTEROL 160(H) <130 mg/dL (calc) [employer] Comment: For patients with diabetes plus 1 major ASCVD risk factor, treating to a non-HDL-C goal of <100 mg/dL (LDL-C of <70 mg/dL) is considered a therapeutic option. Blood BLOOD SPECIMEN / Unknown 07/29/2024 4:[address] 07/29/2024 4:[address] Arianna Bain DO CHEMISTRY Final Result [employer] [facility] [address] [place] [address], [facility] [address] [place] [address] * BASIC METABOLIC PANEL (07/29/2024 4:[address]) Pathologist [facility] GLUCOSE 87 65 - 99 mg/dL [employer] Comment: Fasting reference interval UREA NITROGEN (BUN) 18 7 - 25 mg/dL [facility] CREATININE 1.21 0.70 - 1.30 mg/dL [facility] EGFR 70 > OR = 60 mL/min/1. 73m2 [facility] BUN/CREATININE RATIO SEE NOTE: 6 - 22 (calc) [facility] Comment: Not Reported: BUN and Creatinine are within reference range. SODIUM 139 135 - 146 mmol/L [facility] POTASSIUM 4.2 3.5 - 5.3 mmol/L [facility] CHLORIDE 104 98 - 110 mmol/L [facility] CARBON DIOXIDE 24 20 - 32 mmol/L [facility] ELECTROLYTE BALANCE 11 7 - 17 mmol/L (calc) [facility] CALCIUM 9.4 8.6 - 10.3 mg/dL [employer] [facility] Blood BLOOD SPECIMEN / Unknown 07/29/2024 4:[address] 07/29/2024 4:[address] us Arianna Bain DO CHEMISTRY Final Result [employer] [facility] [address] [place] [address], [facility] [address] [place] [address] * ANTI HCV (08/15/2022 8:[address]) [facility] HEPATITIS C ANTIBODY Non-React yasmani Non-React yasmani 08/17/2022 3:[address] [facility] Comment:Antibodies to HCV no t detected; does not exclude the possibility of exposure to HCV. Blood BLOOD SPECIMEN / Unknown Venipuncture / Unknown 08/15/2022 8:[address] 08/15/2022 8:[address] Jerzy Arias MD SEND OUTS Final Result Performing Organization Address City/[facility]/ZIP Co de Phone Number [facility] [address] [place] [address], [place] * ANTI HIV 1/2 (08/15/2022 8:[address]) HIV-1/HIV-2 ANTIBODY Non-Reacti ve Non-Reacti ve 08/17/2022 8:[address] [facility] Comment:HIV-1 p24 and HIV-1/ HIV-2 Ab not detected. Blood BLOOD SPECIMEN / Unknown Venipuncture / Unknown 08/15/2022 8:[address] 08/15/2022 8:[address] us Jerzy Arias MD SEND OUTS Final Result Performing Organization Address [facility] Co de Phone Number [facility] [address] [place] [address], [place] * COLONOSCOPY (07/05/2021 8:53 AM CDT) 07/05/2021 8:53 AM CDT Narrative Transcriptions Richard Washington MD - 07/05/2021 9:55 AM CDT Patient Name: Faraz Blackman Procedure Date: 07/05/2021 Gender: Male Date of : 1965 Admit Type: Outpatient Procedure: Colonoscopy Proceduralist: Richard Washington MD , Stephania Skinner, RN(Nurse) Referring MD: Jerzy Arias Indications/Pre-Op Diagnosis: [...] 8:53 AM Procedure Code(s): --- Professional --- 17736, Colonoscopy, flexible; with removalof tumor(s), polyp(s), or other lesion(s) bysnare technique Diagnosis Code(s): --- Professional --- Z12.11, Encounter for screening formalignant neoplasm of colon K63.5, Polyp of colon CPT copyright 2020 [employer] [employer]. All rights reserved. The codes documented in this report are preliminary and upon orchestra musician reviewmay be revised to meet current compliance requirements. Scope In: 9:23:29 AM Scope Withdrawal Time 0 hours 17 minutes 51 seconds Scope Out: 9:45:01 AM us Richard Washington MD PROCEDURE ORD Edited Re sult - Final from Last 3 Months or Most Recently Relevant to Health [place] [address] [employer] [place] [address] Advance Directives * Full Code (Latest Code Status on File) Date Activated Date Inactivated Comments 03/24/2017 10:44 AM 03/24/2017 2:19 PM * Full Code Date Activated Date Inactivated Comments 03/24/2017 8:10 AM 03/24/2017 10:44 AM Care Teams Core Analyst Relationship Specialty Start Date End Date Arianna Bain DO [address] [place] [address] PCP - General Family Practice 07/29/24
[2024-08-23] MEDS: 0.9 % SODIUM CHLORIDE 500 ML 500 ML IV (12:52)
[2024-08-23] MEDS: ONDANSETRON 2 MG/ML inj 4 MG IVP (12:53)
[2024-08-23 12:55] LABS: Albumin* 3.9 g/dL (3.3-5.0)
[2024-08-23 12:58] LABS: Alanine Aminotransferase* 37 U/L (4-50); Alkaline Phosphatase* 57 U/L (40-150); Aspartate Amino Transferase* 32 U/L (12-35); Bilirubin Direct* 0.4 mg/dL (0.0-0.5); Bilirubin Total* 0.6 mg/dL (0.1-1.5); Total Protein* 6.7 g/dL (6.0-8.3)
[2024-08-23 13:15] LABS: Chloride* 100 mmol/L (96-114); Potassium* 4.4 mmol/L (3.6-5.1); Sodium* 137 mmol/L (135-149)
[2024-08-23 13:18] LABS: Anion Gap 11 mEq/L (7-15); Blood Urea Nitrogen* 10 mg/dL (7-30); Carbon Dioxide* 26 mmol/L (20-32); Creatinine* 0.9 mg/dL (0.5-1.5); Est. Creatinine Clearance* 90.56; Estimated Glomerular Filt Rate 100 ml/min
[2024-08-23 13:19] LABS: Calcium* 9.2 mg/dL (8.4-10.6); Glucose* 103 mg/dL (60-115)
[2024-08-23 14:52] VITALS: BP 145/95; PULSE 73; RESP 18; TEMP 36.7; O2SAT 97
[2024-08-23 17:52] LABS: Lipase* 52 U/L (23-300)
== END 2024-08-23 15:02 | disposition home or self-care (01) ==
PROVIDERS: Emergency Provider Emergency Medicine; PCP Student in an Organized Health Care Education/Training Program
DX: K57.92 Diverticulitis of intestine, part unspecified, without perforation or abscess without bleeding (principal)
CPT/HCPCS: 36415; 80048; 80076; 83690; 85025; 96361; 96374; 99284; J2405; J7030